=== PATIENT | male | born 1940 | race Caucasian/White ===

== ENCOUNTER 2016-10-04 11:58 | Emergency (ER) | payer OTHER | END 2016-10-04 13:10 | disposition home or self-care (01) | LOC: CED 11:58 → CFTX 11:58 | DX: S51.841A Puncture wound with foreign body of right forearm, initial encounter (principal); I10 Essential (primary) hypertension; W45.8XXA Other foreign body or object entering through skin, initial encounter; W20.8XXA Other cause of strike by thrown, projected or falling object, initial encounter; Y92.830 Public park as the place of occurrence of the external cause | CPT/HCPCS: 90715; 99283 ==